=== PATIENT | female | born 1945 | race African-American/Black ===

== ENCOUNTER 2024-05-26 08:09 | Inpatient (IN) | payer OTHER ==
[~2024-05-26] VITALS: Ht 157.5 cm; Wt 54.4 kg
[2024-05-26 08:38] LABS: HEMATOCRIT. 29.5 % (36.0-48.0); HEMOGLOBIN. 9.3 g/dL (12.0-16.0); MEAN CORPUSCULAR HEMOGLOBIN 30.8 pg (28.0-32.0); MEAN CORPUSCULAR HGB CONC 31.7 g/dL (31.0-37.0); MEAN CORPUSCULAR VOLUME 97.1 fL (81.0-99.0); MEAN PLATELET VOLUME 8.1 fl (7.4-10.4); PLATELET 542 x1000/uL (130-400); RED BLOOD CELL COUNT 3.03 mill/uL (4.2-5.4); RED CELL DISTRIBUTION WIDTH 14.3 % (11.6-14.6); WHITE BLOOD COUNT 14.7 x1000/uL (4.5-11.0)
[2024-05-26] MEDS: PIPERACILLIN/TAZO 3.375G/50ML 50 ML IV ONE (08:40)
[2024-05-26] MEDS: SODIUM CHLORIDE 0.9% 1000ML BAG (SEPSIS BOLUS) IV ONE (08:40)
[2024-05-26 08:41] LABS: DIFFERENTIAL COMMENT 1
[2024-05-26] MEDS: VANCOMYCIN 1G PREMIX 200 ML IV ONE (08:45)
[2024-05-26 08:46] LABS: CHLORIDE 104 mEq/L (98-107); POTASSIUM 4.8 mEq/L (3.5-5.1); SODIUM 137 mEq/L (136-145)
[2024-05-26 08:47] LABS: CALCIUM 8.6 mg/dL (8.7-10.4); CARBON DIOXIDE 20 mEq/L (21-32)
[2024-05-26 08:49] LABS: PROTHROMBIN TIME 11.2 sec (9.6-11.0)
[2024-05-26 08:52] LABS: CREATININE 3.2 mg/dL (0.6-1.0); GLUCOSE 220 mg/dL (70-105); UREA NITROGEN BLOOD 55 mg/dL (9-23)
[2024-05-26 08:54] LABS: ALANINE AMINOTRANSFERASE 27 IU/L (10-49); ALBUMIN 3.7 g/dL (3.2-4.8); ASPARTATE AMINOTRANSFERASE 57 IU/L (<34)
[2024-05-26 08:55] LABS: BILIRUBIN DIRECT 0.2 mg/dL (<=3.0); BILIRUBIN TOTAL 0.6 mg/dL (0.1-1.0); PROTEIN TOTAL 6.1 g/dL (6.0-8.3)
[2024-05-26 09:12] LABS: TROPONIN I HIGH SENSITIVITY 57 ng/L (3.0-34)
[2024-05-26 10:14] LABS: PLATELET ESTIMATE INCREASED
[2024-05-26] MEDS ORDERED: KETOROLAC 15MG/ML VIAL IV PRN (17:30)
[2024-05-26] MEDS ORDERED: GUAIFENESIN 200MG/10ML SUGAR FREE UDC PO PRN (17:30)
[2024-05-26] MEDS ORDERED: ACETAMINOPHEN 325MG TABLET PO PRN (17:30)
[2024-05-26] MEDS ORDERED: MAGNESIUM/ALUMINUM HYDROXIDE/SIMETHICONE 30ML UDC PO PRN (17:30)
[2024-05-26] MEDS: SODIUM CHLORIDE 0.9% 1,000 ML IV SCH (17:44)
[2024-05-26 20:04] LABS: CLARITY URINE CLOUDY (CLEAR); COLOR URINE DARK YELLOW (YELLOW); GLUCOSE URINE NEGATIVE (NEGATIVE); KETONES URINE NEGATIVE (NEGATIVE); LEUKOCYTE ESTERASE URINE 1+ (NEGATIVE); NITRITE URINE NEGATIVE (NEGATIVE); OCCULT BLOOD URINE 1+ (NEGATIVE); PROTEIN URINE 1+ (NEGATIVE); SPECIFIC GRAVITY URINE 1.019 (1.005-1.030); UROBILINOGEN URINE 0.2 E.U./dL (0.2-1.0)
[2024-05-26 20:20] LABS: *AMPHETAMINES SCREEN URINE NEGATIVE (NEGATIVE)
[2024-05-26 20:21] LABS: *BARBITURATES SCREEN URINE NEGATIVE (NEGATIVE); *BENZODIAZEPINES SCREEN URINE NEGATIVE (NEGATIVE); *COCAINE SCREEN URINE NEGATIVE (NEGATIVE); CANNABINOID URINE SCREEN NEGATIVE (NEGATIVE); ECSTASY MDMA SCREEN URINE NEGATIVE (NEGATIVE); METHADONE URINE SCREEN NEGATIVE (NEGATIVE); OPIATES URINE SCREEN NEGATIVE (NEGATIVE); PHENCYCLIDINE URINE SCREEN NEGATIVE (NEGATIVE)
[2024-05-26 20:28] LABS: BACTERIA URINE 4+; SQUAMOUS EPITHELIAL CELL URINE FEW /lpf (RARE/1+)
[2024-05-26 20:50] LABS: T4 FREE 1.05 ng/dL (0.89-1.76); THYROID STIMULATING HORMONE 1.61 uIU/mL (0.55-4.78)
[2024-05-26] MEDS: ENOXAPARIN 30MG/0.3ML SYR SUBCUT SCH (22:20)
[2024-05-26] MEDS: PIPERACILLIN/TAZO 3.375G/50ML 50 ML IV SCH (22:20)
[2024-05-26 23:30] VITALS: BP 119/45; PULSE 96; RESP 18; TEMP 36.1956
[2024-05-27] MEDS ORDERED: METO-396 MT (03:45)
[2024-05-27] MEDS ORDERED: ALEN70SO4 PO (03:49)
[2024-05-27] MEDS ORDERED: OMEP20CA14 MT (03:49)
[2024-05-27] MEDS ORDERED: PREG50CA MT (03:49)
[2024-05-27] MEDS ORDERED: ALEN70TA79 PO (03:51)
[2024-05-27 06:38] LABS: CARBON DIOXIDE 19 mEq/L (21-32); CHLORIDE 111 mEq/L (98-107); POTASSIUM 4.8 mEq/L (3.5-5.1); SODIUM 143 mEq/L (136-145)
[2024-05-27 06:39] LABS: CALCIUM 8.1 mg/dL (8.7-10.4)
[2024-05-27 06:43] LABS: CREATININE 3.1 mg/dL (0.6-1.0); GLUCOSE 95 mg/dL (70-105); IRON 14 ug/dL (50-170)
[2024-05-27 06:44] LABS: UREA NITROGEN BLOOD 55 mg/dL (9-23)
[2024-05-27 06:46] LABS: HEMOGLOBIN. 8.4 g/dL (12.0-16.0); MEAN CORPUSCULAR HEMOGLOBIN 31.2 pg (28.0-32.0); MEAN CORPUSCULAR HGB CONC 32.1 g/dL (31.0-37.0); MEAN CORPUSCULAR VOLUME 97.2 fL (81.0-99.0); MEAN PLATELET VOLUME 8.4 fl (7.4-10.4); PHOSPHORUS 4.6 mg/dL (2.5-4.9); PLATELET 401 x1000/uL (130-400); RED BLOOD CELL COUNT 2.68 mill/uL (4.2-5.4); RED CELL DISTRIBUTION WIDTH 14.3 % (11.6-14.6); TOTAL IRON BINDING CAPACITY 199 ug/dl (250-425); WHITE BLOOD COUNT 9.7 x1000/uL (4.5-11.0)
[2024-05-27 06:51] LABS: VITAMIN B12 SERUM 942 pg/mL (211-911)
[2024-05-27] MEDS ORDERED: CHLO25TA2 MT (07:05)
[2024-05-27] MEDS ORDERED: HYDR100T11 PO ×2 (07:05→07:09)
[2024-05-27 07:10] LABS: DIFFERENTIAL COMMENT 1
[2024-05-27 08:00] VITALS: BP 135/56; PULSE 90; RESP 18; TEMP 36.50292; O2SAT 99
[2024-05-27] MEDS: PANTOPRAZOLE SODIUM 40 MG/VIAL IV SCH (09:01)
[2024-05-27] MEDS: CEFTRIAXONE 1GM/50ML 50ML IV SCH (10:21)
[2024-05-27] MEDS: METRONIDAZOLE 500 MG PREMIX 100 ML IV SCH (10:21)
[2024-05-27] MEDS: POLYETHYLENE GLYCOL 3350 (17GM) 1 DOSE PACK PO NR (11:27)
[2024-05-27 12:00] VITALS: BP 129/60; PULSE 100; RESP 18; TEMP 36.50292; O2SAT 98
[2024-05-27 16:00] VITALS: BP 130/80; PULSE 99; RESP 18; TEMP 36.50292; O2SAT 98
[2024-05-27 19:52] LABS: PLATELET ESTIMATE NORMAL
[2024-05-27 20:00] VITALS: BP 134/63; PULSE 89; RESP 20; TEMP 36.78072; O2SAT 97
[2024-05-28] VITALS: BP 120/80; PULSE 88; RESP 20; TEMP 36.55848; O2SAT 97
[2024-05-28 04:00] VITALS: BP 148/53; PULSE 90; RESP 18; TEMP 36.22512; O2SAT 98
[2024-05-28 07:25] LABS: POTASSIUM 4.4 mEq/L (3.5-5.1)
[2024-05-28 07:27] LABS: CALCIUM 7.7 mg/dL (8.7-10.4)
[2024-05-28 07:30] LABS: HEMATOCRIT 26.9 % (36.0-48.0); HEMOGLOBIN 8.3 g/dL (12.0-16.0); MEAN CORPUSCULAR HEMOGLOBIN 30.6 pg (28.0-32.0); MEAN CORPUSCULAR VOLUME 98.6 fL (81.0-99.0); PLATELET 447 x1000/uL (130-400); RED BLOOD CELL COUNT 2.73 mill/uL (4.2-5.4); RED CELL DISTRIBUTION WIDTH 14.7 % (11.6-14.6); WHITE BLOOD COUNT 11.1 x1000/uL (4.5-11.0)
[2024-05-28 07:31] LABS: CREATININE 3.1 mg/dL (0.6-1.0)
[2024-05-28 08:00] VITALS: BP 120/50; PULSE 89; RESP 20; TEMP 36.114; O2SAT 93
[2024-05-28] MEDS: METOPROLOL SUCCINATE 25MG ER TABLET PO SCH (09:00)
[2024-05-28 09:11] LABS: FOLATE HEMATOCRIT 25.9 % (34.0-46.6)
[2024-05-28] MEDS: ACETAMINOPHEN 325MG TABLET PO PRN (09:28)
[2024-05-28 12:00] VITALS: BP 126/60; PULSE 72; RESP 18; TEMP 36.44736; O2SAT 93
[2024-05-28 13:07] LABS: FOLATE RBC 1394 ng/mL (>498)
[2024-05-28 16:00] VITALS: BP 129/58; PULSE 92; RESP 18; TEMP 35.89176; O2SAT 93
[2024-05-28] MEDS: FERROUS SULFATE 325MG TABLET PO SCH (17:07)
[2024-05-28 20:00] VITALS: BP 137/76; PULSE 101; RESP 20; TEMP 36.89184; O2SAT 98
[2024-05-28] MEDS: AZITHROMYCIN 500MG/250ML 250 ML IV SCH (21:03)
[2024-05-29] VITALS: BP 129/80; PULSE 70; RESP 20; TEMP 36.89184; O2SAT 98
[2024-05-29 04:00] VITALS: BP 145/80; PULSE 100; RESP 18; TEMP 36.89184; O2SAT 98
[2024-05-29 08:00] VITALS: BP 149/53; PULSE 94; RESP 20; TEMP 36.61404; O2SAT 99
[2024-05-29 08:06] LABS: HEMATOCRIT 25.7 % (36.0-48.0); HEMOGLOBIN 8.2 g/dL (12.0-16.0); MEAN CORPUSCULAR HEMOGLOBIN 31.6 pg (28.0-32.0); MEAN CORPUSCULAR HGB CONC 31.9 g/dL (31.0-37.0); MEAN CORPUSCULAR VOLUME 99.1 fL (81.0-99.0); PLATELET 420 x1000/uL (130-400); RED BLOOD CELL COUNT 2.59 mill/uL (4.2-5.4); RED CELL DISTRIBUTION WIDTH 15.1 % (11.6-14.6); WHITE BLOOD COUNT 8.9 x1000/uL (4.5-11.0)
[2024-05-29 08:14] LABS: POTASSIUM 3.8 mEq/L (3.5-5.1)
[2024-05-29 08:15] LABS: CALCIUM 6.9 mg/dL (8.7-10.4)
[2024-05-29 08:20] LABS: CREATININE 2.3 mg/dL (0.6-1.0)
[2024-05-29 12:00] VITALS: BP 147/63; PULSE 87; RESP 18; TEMP 36.44736; O2SAT 98
[2024-05-29 16:00] VITALS: BP 151/64; PULSE 88; RESP 18; TEMP 36.61404; O2SAT 98
[2024-05-29 20:00] VITALS: BP_SYST 126; BP_SYST 148; BP_SYST 172; BP_DIAS 67; BP_DIAS 69; BP_DIAS 80; PULSE 101; PULSE 116; PULSE 88; RESP 17; RESP 19; RESP 20; TEMP 36.114; TEMP 36.28068; TEMP 36.33624; O2SAT 94; O2SAT 96; O2SAT 98
[2024-05-30] VITALS: BP 148/67; PULSE 88; RESP 19; TEMP 36.28068; O2SAT 96
[2024-05-30 07:08] LABS: HEMATOCRIT. 24.7 % (36.0-48.0); HEMOGLOBIN. 8.1 g/dL (12.0-16.0); MEAN CORPUSCULAR HEMOGLOBIN 31.9 pg (28.0-32.0); MEAN CORPUSCULAR HGB CONC 32.8 g/dL (31.0-37.0); MEAN CORPUSCULAR VOLUME 97.1 fL (81.0-99.0); MEAN PLATELET VOLUME 8.4 fl (7.4-10.4); PLATELET 455 x1000/uL (130-400); RED BLOOD CELL COUNT 2.54 mill/uL (4.2-5.4); RED CELL DISTRIBUTION WIDTH 14.6 % (11.6-14.6); WHITE BLOOD COUNT 8.1 x1000/uL (4.5-11.0)
[2024-05-30 07:21] LABS: POTASSIUM 3.7 mEq/L (3.5-5.1)
[2024-05-30 07:23] LABS: CALCIUM 7.9 mg/dL (8.7-10.4)
[2024-05-30 07:26] LABS: CREATININE 2.1 mg/dL (0.6-1.0)
[2024-05-30 08:00] VITALS: BP 159/57; PULSE 90; RESP 18; TEMP 36.61404; O2SAT 98
[2024-05-30 09:04] LABS: DIFFERENTIAL COMMENT 1
[2024-05-30 12:00] VITALS: BP 156/57; PULSE 88; RESP 18; TEMP 36.50292; O2SAT 96
[2024-05-30 16:00] VITALS: BP 159/60; PULSE 81; RESP 18; TEMP 36.55848; O2SAT 97
[2024-05-30] MEDS: CLONIDINE 0.1MG TABLET PO PRN (17:24)
[2024-05-30 20:00] VITALS: BP 141/59; PULSE 80; RESP 20; TEMP 36.61404; O2SAT 98
[2024-05-30 22:03] LABS: PLATELET ESTIMATE INCREASED
[2024-05-31] VITALS: BP 139/47; PULSE 78; RESP 18; TEMP 36.00288; O2SAT 97
[2024-05-31 04:00] VITALS: BP 130/52; PULSE 77; RESP 16; TEMP 36.28068; O2SAT 98
[2024-05-31 08:00] VITALS: BP 159/57; PULSE 81; RESP 18; TEMP 36.16956; O2SAT 100
[2024-05-31] MEDS ORDERED: LIDOCAINE HCL/EPINEPHRINE 1%-EPI 1:100,000 20ML VIAL INFIL NR (08:30)
[2024-05-31 12:00] VITALS: BP 142/55; PULSE 76; RESP 20; TEMP 37.11408; O2SAT 97
[2024-05-31 16:00] VITALS: BP 105/54; PULSE 83; RESP 18; TEMP 37.11408; O2SAT 97
[2024-05-31 20:00] VITALS: BP 149/62; PULSE 86; RESP 18; TEMP 36.3918; O2SAT 94
[2024-06-01] VITALS: BP 140/57; PULSE 83; RESP 18; TEMP 36.28068; O2SAT 96
[2024-06-01 04:00] VITALS: BP 150/55; PULSE 80; RESP 18; TEMP 36.28068; O2SAT 96
[2024-06-01 08:00] VITALS: BP 153/59; PULSE 80; RESP 18; TEMP 36.55848; O2SAT 97
[2024-06-01 12:00] VITALS: BP 161/60; PULSE 87; RESP 12; TEMP 36.72516; O2SAT 98
[2024-06-01 16:00] VITALS: BP 157/60; PULSE 91; RESP 20; TEMP 36.3918; O2SAT 98
[2024-06-01 19:36] LABS: HEMATOCRIT. 27.6 % (36.0-48.0); HEMOGLOBIN. 8.9 g/dL (12.0-16.0); MEAN CORPUSCULAR HEMOGLOBIN 31.3 pg (28.0-32.0); MEAN CORPUSCULAR HGB CONC 32.1 g/dL (31.0-37.0); MEAN CORPUSCULAR VOLUME 97.5 fL (81.0-99.0); MEAN PLATELET VOLUME 8.3 fl (7.4-10.4); PLATELET 524 x1000/uL (130-400); RED BLOOD CELL COUNT 2.84 mill/uL (4.2-5.4); RED CELL DISTRIBUTION WIDTH 14.5 % (11.6-14.6); WHITE BLOOD COUNT 9.4 x1000/uL (4.5-11.0)
[2024-06-01 19:44] LABS: POTASSIUM 3.4 mEq/L (3.5-5.1)
[2024-06-01 19:46] LABS: CALCIUM 8.8 mg/dL (8.7-10.4)
[2024-06-01 19:49] LABS: DIFFERENTIAL COMMENT 1
[2024-06-01 19:50] LABS: CREATININE 2.4 mg/dL (0.6-1.0)
[2024-06-01 19:53] VITALS: BP 147/62; PULSE 89; RESP 20; TEMP 36.61404; O2SAT 97
[2024-06-01 21:11] LABS: PLATELET ESTIMATE MARKEDLY INCREASED
[2024-06-02 01:11] VITALS: BP 137/69; PULSE 92; RESP 18; TEMP 36.72516; O2SAT 97
[2024-06-02 04:03] VITALS: BP 170/70; PULSE 90; RESP 18; TEMP 36.61404; O2SAT 97
[2024-06-02 06:36] LABS: POTASSIUM 3.5 mEq/L (3.5-5.1)
[2024-06-02 06:37] LABS: CALCIUM 8.7 mg/dL (8.7-10.4)
[2024-06-02 06:42] LABS: CREATININE 2.4 mg/dL (0.6-1.0)
[2024-06-02 06:44] LABS: HEMATOCRIT. 26.2 % (36.0-48.0); HEMOGLOBIN. 8.5 g/dL (12.0-16.0); MEAN CORPUSCULAR HEMOGLOBIN 31.2 pg (28.0-32.0); MEAN CORPUSCULAR HGB CONC 32.3 g/dL (31.0-37.0); MEAN CORPUSCULAR VOLUME 96.4 fL (81.0-99.0); MEAN PLATELET VOLUME 8.4 fl (7.4-10.4); PLATELET 482 x1000/uL (130-400); RED BLOOD CELL COUNT 2.71 mill/uL (4.2-5.4); RED CELL DISTRIBUTION WIDTH 14.1 % (11.6-14.6); WHITE BLOOD COUNT 8.5 x1000/uL (4.5-11.0)
[2024-06-02 06:57] LABS: DIFFERENTIAL COMMENT 1
[2024-06-02 07:01] VITALS: PULSE 18; RESP 18; TEMP 36.61404; O2SAT 97
[2024-06-02 12:06] VITALS: BP 118/62; PULSE 84; RESP 18; TEMP 36.55848; O2SAT 97
[2024-06-02] MEDS: FUROSEMIDE 40MG/4ML VIAL IVP NR (13:00)
[2024-06-02 13:36] LABS: NUCLEATED RED BLOOD CELLS 1 /100 WBC; PLATELET ESTIMATE INCREASED
[2024-06-02 13:37] LABS: ANISOCYTOSIS 1+
[2024-06-02 16:00] VITALS: BP 179/75; PULSE 84; RESP 17; TEMP 36.16956; O2SAT 98
[2024-06-02 20:00] VITALS: BP 190/87; PULSE 86; RESP 16; TEMP 35.0028; O2SAT 95
[2024-06-03] VITALS: BP 174/75; PULSE 90; RESP 17; TEMP 36.50292
[2024-06-03] MEDS: AZITHROMYCIN 500MG/250ML 250 ML IV NR (00:40)
[2024-06-03 04:00] VITALS: BP 146/62; PULSE 73; RESP 15; TEMP 36.6696; O2SAT 98
[2024-06-03 08:00] VITALS: BP 159/64; PULSE 78; RESP 19; TEMP 36.83628; O2SAT 97
[2024-06-03] MEDS: ONDANSETRON HCL 4MG/2ML INJ IV PRN (17:37)
[2024-06-03 20:00] VITALS: BP 150/56; PULSE 51; RESP 18; TEMP 36.16956; O2SAT 89
[2024-06-04] VITALS: BP 165/65; PULSE 75; RESP 18; TEMP 36.33624
[2024-06-04 04:00] VITALS: BP 165/65; PULSE 75; RESP 18; TEMP 36.33624; O2SAT 100
[2024-06-04 08:00] VITALS: BP 161/59; PULSE 71; RESP 18; TEMP 36.89184; O2SAT 95
[2024-06-04] MEDS: AMLODIPINE 10MG TABLET PO SCH (09:55)
[2024-06-04 12:00] VITALS: BP 178/80; PULSE 79; RESP 16; TEMP 36.9474; TEMP 36.94740; O2SAT 98
[2024-06-04 13:38] VITALS: BP 161/58; PULSE 71; TEMP 98.4; O2SAT 99
[2024-06-04] MEDS: DOCUSATE SODIUM 100MG CAPSULE PO PRN (14:14)
[2024-06-04 14:15] VITALS: TEMP 98.4
== END 2024-06-04 16:07 | DRG 871 ==
LOC: ER 08:09 → EDBEDREQ 12:56 → 5WST 14:07 → EDBEDREQ 14:09 → EDBEDREQTM 14:09 → 8WST 23:24 → 6WST 06-02 13:06
PROVIDERS: ADMIT Internal Medicine; ATTEND Internal Medicine
DX: A41.9 Sepsis, unspecified organism (principal); J69.0 Pneumonitis due to inhalation of food and vomit; N17.9 Acute kidney failure, unspecified; N39.0 Urinary tract infection, site not specified; M62.82 Rhabdomyolysis; E87.20 Acidosis, unspecified; E11.9 Type 2 diabetes mellitus without complications; K52.9 Noninfective gastroenteritis and colitis, unspecified; D64.9 Anemia, unspecified; D75.838 Other thrombocytosis; I10 Essential (primary) hypertension; J45.909 Unspecified asthma, uncomplicated; F03.90 Unspecified dementia, unspecified severity, without behavioral disturbance, psychotic disturbance, mood disturbance, and anxiety; R29.6 Repeated falls; Z79.899 Other long term (current) drug therapy; M25.551 Pain in right hip; Z20.822 Contact with and (suspected) exposure to COVID-19; Z85.048 Personal history of other malignant neoplasm of rectum, rectosigmoid junction, and anus; Z88.0 Allergy status to penicillin; Z90.49 Acquired absence of other specified parts of digestive tract; Z93.3 Colostomy status
CPT/HCPCS: 36415; 71045; 73502; 74018; 74176; 76770; 80048; 80061; 80076; 80305; 81003; 82040; 82550; 82607; 82728; 82747; 83036; 83540; 83550; 83605; 83735; 84100; 84145; 84439; 84443; 84484; 85014; 85025; 85027; 85044; 87426; 93005; 93306; 93970; 97162; 97166; 99291; A6261; C1893; J0456; J0696; J1650; J2405; J2470; J2543; J3370; J3490; J7030